=== PATIENT | male | born 2000 | race Two or more races ===

== ENCOUNTER 2018-02-08 08:03 | Emergency (ER) | payer BC ==
[~2018-02-08] VITALS: Ht 177.8 cm; Wt 59.0 kg
[2018-02-08 08:29] VITALS: BP 138/82
[2018-02-08] MEDS ORDERED: IPRATROPIUM BROM 0.5 MG/2.5ML INH SOL NEB ONE (08:30)
[2018-02-08] MEDS ORDERED: ALBUTEROL SULF 2.5 MG/0.5ML(0.5%) NEB SOLN NEB ONE ×2 (08:30)
[2018-02-08] MEDS ORDERED: methylPREDNISolone SOD SUCC 125 MG/2 ML VL IM ONE (08:45)
[2018-02-08] MEDS ORDERED: ONDANSETRON ODT 4 MG TAB PO ONE (09:45)
== END 2018-02-08 09:45 | disposition home or self-care (01) ==
LOC: ER 08:03
DX: J98.01 Acute bronchospasm (principal); F12.10 Cannabis abuse, uncomplicated
CPT/HCPCS: 71046; 93005; 94640; 99283; J2930; J7644; Q0162

== ENCOUNTER 2018-02-26 12:13 | Emergency (ER) | payer BC ==
[~2018-02-26] VITALS: Ht 177.8 cm; Wt 59.0 kg
[2018-02-26 12:38] VITALS: BP 114/77
[2018-02-26] MEDS ORDERED: diphenhdrAMINE HCL 50 MG/1 ML VL IM ONE (14:45)
== END 2018-02-26 15:20 | disposition home or self-care (01) ==
LOC: ER 12:13
DX: F41.1 Generalized anxiety disorder (principal)
CPT/HCPCS: 71046; 96372; 99283; J1200